=== PATIENT | female | born 1995 | race Caucasian/White ===

== ENCOUNTER 2021-08-17 19:39 | Emergency (ER) | payer OTHER, SELFPAY ==
[2021-08-17 19:44] VITALS: BP 142/93; PULSE 89; RESP 16; TEMP 36.6; O2SAT 98
[2021-08-17 19:56] VITALS: BP 142/93; PULSE 89; RESP 16; TEMP 36.6; O2SAT 98
--- NOTE | 2021-08-17 20:00 | ED.FEMALEGU ---
HPI - Female Genitourinary General Chief complaint: Urogenital-Female Stated complaint: Urinary Problem Time Seen by Provider: 08/17/21 19:53 Source: patient and RN notes reviewed Mode of arrival: ambulatory Limitations: no limitations History of Present Illness HPI Narrative: Patient presents today complaining of 1 week history of dysuria, frequency, urgency, voiding small amounts, lower abdominal pressure. Denies abdominal pain, nausea, vomiting, fever, back pain. She has been taking Azo with some relief. Denies any recent antibiotic use. MD elicited complaint: UTI Related Data Home Medications Medication Instructions Recorded Confirmed atomoxetine 80 mg PO DAILY 08/17/21 08/17/21 norgestimate-ethinyl estradiol tablet PO DAILY 08/17/21 [Tri-Sprintec (28)] propranolol 10 mg PO BID 08/17/21 08/17/21 venlafaxine 150 mg PO DAILY 08/17/21 08/17/21 Allergies Allergy/AdvReac Type Severity Reaction Status Date / Time No Known Allergies Allergy Verified 08/17/21 19:48 Review of Systems Review of Systems: CONSTITUTIONAL: Denies body aches, fever, chills, or sweats. EYES: Denies visual changes, redness, or discharge. ENT: Denies rhinorrhea, congestion, sore throat, or otalgia. CARDIOVASCULAR: Denies chest pain, palpitations, or edema. RESPIRATORY: Denies cough or dyspnea. GASTROINTESTINAL: Denies abdominal pain, nausea, vomiting, or diarrhea. GENITOURINARY: + Dysuria, frequency, urgency, voiding small amounts, lower abdominal pressure SKIN: Denies rash, itching, or wounds. MUSCULOSKELETAL: Denies back pain, joint pain, or myalgia. NEUROLOGIC: Denies headache, numbness, tingling, or weakness. PSYCH: Denies depression or anxiety. PMFSH Comments At time of signature, I have reviewed and agree with nursing past medical, surgical, social and family history unless otherwise noted. Please see nursing chart for further information. There is no relevant family history pertinent to the presenting complaint Exam Narrative: GENERAL: Well-appearing, well-nourished, and in no acute distress. HEAD: Normocephalic, atraumatic. EYES: EOMI. No redness or drainage. Conjunctivae normal. ENT: Mucous membranes pink and moist. NECK: Normal AROM. CHEST: No respiratory distress. Clear to auscultation. HEART: Regular rate and rhythm. No murmur appreciated. Normal peripheral pulses. ABDOMEN: Soft, nontender, nondistended, normal active bowel sounds.-CVAT EXTREMITIES: Normal range of motion. No edema. SKIN: Warm, dry, no rash. Capillary refill normal. Normal skin turgor. NEURO: No focal deficits. Alert and oriented x3. Gait steady. PSYCH: Normal affect. No signs of depression or anxiety. Course Course Level of Care: Express Care Visit Vital Signs Vital signs: Vital Signs Temperature 97.9 F 08/17/21 19:44 Pulse Rate 89 08/17/21 19:44 Respiratory Rate 16 08/17/21 19:44 Blood Pressure 142/93 H 08/17/21 19:44 Pulse Oximetry 98 08/17/21 19:44 Temperature 97.9 F 08/17/21 19:56 Pulse Rate 89 08/17/21 19:56 Respiratory Rate 16 08/17/21 19:56 Blood Pressure 142/93 H 08/17/21 19:56 Pulse Oximetry 98 08/17/21 19:56 Reviewed. Pt has been instructed to follow up with her PCP regarding her elevated blood pressure today. MDM - Female Genitourinary Differential Diagnosis Differential diagnosis: Likely urinary tract infection, cystitis and other (Pyelonephritis, interstitial cystitis) Lab Data Attestation: I reviewed the patient's lab results. Lab results narrative: Patient taking Azo, results likely skewed Labs: Urine Glucose Trace Reference Range: Negative Urine Bilirubin 1+ Reference Range: Negative Urine Ketone 1+ Reference Range: Negative Urine Specific [place] 1.025
== END 2021-08-17 20:11 | disposition home or self-care (01) ==
PROVIDERS: Emergency Provider Nurse Practitioner
DX: N30.00 Acute cystitis without hematuria (principal)
CPT/HCPCS: 81003; 87086; 99213; G0463